=== PATIENT | female | born 1985 | race Caucasian/White ===

== ENCOUNTER 2020-03-21 15:24 | Inpatient (IN) ==
--- NOTE | 2020-03-21 16:26 | RAD ---
HISTORYReason For Study feverSTUDYCHEST, 1 VIEWCOMPARISONNoneFINDINGSThe trachea is midline. The cardiac silhouette is unremarkable . The lungs are clear without focal infiltrate or effusion. The bony thorax is unremarkable.IMPRESSIONNo acute cardiopulmonary disease.Electronically signed by: FERNANDA MELGOZA (Mar 21, 2020 16:24:14)
[2020-03-21] MEDS ORDERED: NS 1000 ML 1,000 ML ONE (16:57)
[2020-03-21 18:11] LABS: BASOPHILS # (AUTO) 0.1 X10^3/uL (0.0-0.1); BASOPHILS % (AUTO) 1.6 % (0.2-1.0); HEMATOCRIT 40.7 % (36.0-47.0); LYMPHOCYTES % (AUTO) 26.3 % (21.0-51.0); MEAN CORPUSCULAR HEMOGLOBIN 31.1 pg (27.0-34.0); MEAN CORPUSCULAR HGB CONC 34.4 g/dL (33.0-35.0); MEAN CORPUSCULAR VOLUME 90.3 fL (80.0-100.0); MEAN PLATELET VOLUME 9.6 fL (7.4-11.0); MONOCYTES # (AUTO) 0.2 x10^3/uL (0.3-0.8); MONOCYTES % (AUTO) 4.8 % (0.0-13.0); NEUTROPHILS # (AUTO) 2.5 x10^3/uL (2.2-4.8); NEUTROPHILS % (AUTO) 67.3 % (42.0-75.0); PLATELET COUNT 211 X10^3/uL (150.0-450.0); RED BLOOD COUNT 4.51 X10^6/uL (3.5-5.4); RED CELL DISTRIBUTION WIDTH 13.4 % (11.6-16.5); WHITE BLOOD COUNT 3.7 X10^3/uL (3.6-10.0)
[2020-03-21 18:25] VITALS: BMI 32.4
[2020-03-21 18:27] LABS: ALANINE AMINOTRANSFERASE 105 Units/L (12-78); ALBUMIN 3.2 g/dL (3.4-5.0); ALKALINE PHOSPHATASE 114 Units/L (46-116); ASPARTATE AMINO TRANSFERASE 69 Units/L (15-37); BLOOD UREA NITROGEN 5 mg/dL (7-18); CALCIUM 8.4 mg/dL (8.5-10.1); CARBON DIOXIDE 23.8 mmol/L (21-32); CHLORIDE 103 mmol/L (98-107); CREATININE 0.89 mg/dL (0.55-1.02); SODIUM 139 mmol/L (136-145); eGFR NON BLACK RACES > 60 (>60)
[2020-03-21] MEDS: NS 1000 ML 1,000 ML IV SCH (18:32)
[2020-03-21 18:56] LABS: ERYTHROCYTE SEDIMENTATION RATE 13 MM/HOUR (0-20)
[2020-03-21] MEDS ORDERED: MICRO K EXTEN CAP 10 MEQ PO PRN (19:04)
[2020-03-21] MEDS ORDERED: KLOR-CON PO PRN (19:04)
[2020-03-21] MEDS ORDERED: POTASSIUM CHLORIDE LIQ 20 MEQ UDC PO PRN (19:04)
[2020-03-21] MEDS ORDERED: K-RIDER 10 MEQ/NS 100 ML 10 MEQ/100 ML BAG IV PRN (19:04)
[2020-03-21] MEDS ORDERED: POTASSIUM CHL 60 MEQ/NS 0.45% 500 ML IV PRN (19:04)
[2020-03-21] MEDS ORDERED: POTASSIUM CHL 40 MEQ/NS 0.45% 500 ML IV PRN (19:04)
[2020-03-21] MEDS: TYLENOL 325 MG TAB PO PRN (19:09)
[2020-03-21 19:17] LABS: BILIRUBIN,URINE NEGATIVE (NEGATIVE); BLOOD/HEMOGLOBIN,URINE 2+ (NEGATIVE); GLUCOSE, URINE NEGATIVE (NEGATIVE); KETONES,URINE NEGATIVE (NEGATIVE); LEUKOCYTE ESTERASE ,URINE NEGATIVE (NEGATIVE); NITRITES,URINE NEGATIVE (NEGATIVE); PH,URINE 6.5 (5.0 - 8.0); PROTEIN,URINE NEGATIVE (NEGATIVE); UROBILINOGEN,URINE NORMAL (NORMAL)
[2020-03-21 19:34] LABS: APPEARANCE,URINE CLEAR (CLEAR); BACTERIA,URINE NEGATIVE /HPF (NEGATIVE); COLOR,URINE YELLOW (YELLOW); RBC,URINE 0-2 /HPF (0-3); SQUAMOUS EPITHELIAL CELL,UR FEW /HPF (NEGATIVE)
[2020-03-21] MEDS: NORCO 5/325 MG TAB PO PRN (21:13)
[2020-03-21] MEDS: K-DUR TAB 20 MEQ PO PRN (21:14)
[2020-03-22] MEDS: NORCO 5/325 MG TAB PO PRN ×3 (03:26→21:49)
[2020-03-22] MEDS: TYLENOL 325 MG TAB PO PRN ×2 (03:42→12:16)
[2020-03-22] MEDS: NS 1000 ML 1,000 ML IV SCH ×3 (05:03→21:48)
--- NOTE | 2020-03-22 05:52 | RAD ---
HISTORYFEVERSTUDYCHEST, 1 [id number]/12/2020FINDINGSThe trachea is midline. The cardiac silhouette is unremarkable. Question hazy opacity at the right lung base.. The bony thorax is unremarkable.IMPRESSIONQuestion hazy opacity at the right lung base, which may represent early infiltrates. Follow-up is recommended.Electronically signed by: Maggy Wynn (Mar 22, 2020 05:50:56)
[2020-03-22 06:15] LABS: BASOPHILS % (AUTO) 0.9 % (0.2-1.0); EOSINOPHILS % (AUTO) 0.1 % (0.9-2.9); HEMOGLOBIN 13.4 g/dL (12.0-16.0); LYMPHOCYTES # (AUTO) 0.4 X10^3/uL (1.3-2.9); LYMPHOCYTES % (AUTO) 14.8 % (21.0-51.0); MEAN CORPUSCULAR HEMOGLOBIN 31.4 pg (27.0-34.0); MEAN CORPUSCULAR HGB CONC 34.3 g/dL (33.0-35.0); MEAN CORPUSCULAR VOLUME 91.4 fL (80.0-100.0); MONOCYTES # (AUTO) 0.1 x10^3/uL (0.3-0.8); MONOCYTES % (AUTO) 4.3 % (0.0-13.0); NEUTROPHILS # (AUTO) 2.1 x10^3/uL (2.2-4.8); NEUTROPHILS % (AUTO) 79.9 % (42.0-75.0); PLATELET COUNT 179 X10^3/uL (150.0-450.0); RED BLOOD COUNT 4.27 X10^6/uL (3.5-5.4); RED CELL DISTRIBUTION WIDTH 13.5 % (11.6-16.5); WHITE BLOOD COUNT 2.7 X10^3/uL (3.6-10.0)
[2020-03-22 06:30] LABS: ALANINE AMINOTRANSFERASE 111 Units/L (12-78); ALBUMIN 2.7 g/dL (3.4-5.0); ALKALINE PHOSPHATASE 120 Units/L (46-116); ASPARTATE AMINO TRANSFERASE 90 Units/L (15-37); BLOOD UREA NITROGEN 5 mg/dL (7-18); CALCIUM 7.9 mg/dL (8.5-10.1); CARBON DIOXIDE 23.9 mmol/L (21-32); CHLORIDE 104 mmol/L (98-107); COR CA(FOR HYPOALB) 8.9 mg/dL (8.5-10.1); CREATININE 0.89 mg/dL (0.55-1.02); SODIUM 138 mmol/L (136-145); TOTAL PROTEIN 6.2 g/dL (6.4-8.2); eGFR NON BLACK RACES > 60 (>60)
[2020-03-22] MEDS: K-DUR TAB 20 MEQ PO PRN (10:24)
[2020-03-22] MEDS ORDERED: NS 250 ML IV 250 ML IV ONE (10:50)
[2020-03-22] MEDS: ZITHROMAX INJ 500 MG VIAL 500 MG in D5W 250 ML IV 250 ML IV SCH (11:00)
[2020-03-22] MEDS: ZOSYN VIAL 3.375 GRAMS 3.375 G in NS 100 ML IV + SPIKE MINIBAG* 100 ML IV SCH ×4 (11:22→21:23)
[2020-03-22 11:58] LABS: RSV AG DETECTION NEGATIVE (NEGATIVE)
[2020-03-22] MEDS ORDERED: PROVENTIL NEB TX 0.083% 2.5MG/ 3ML NEB PRN (12:50)
--- NOTE | 2020-03-22 13:26 | DR.H&P ---
H&P - History & Physical for Day of: H&P Date: 03/22/20 - Chief Complaint Chief Complaint: DAY, FEVER, BODYACHES - History of Present Illness History of Present Illness: PT IS 34 WF DIRECT ADMIT FROM DR NIKI PORTILLO OFFICE WITH FEVER, BODY ACHES AND INTRACTABLE DAY. PT DENIES ANY CHEST PAIN OR SOB. PT DENIES ANY KNOWN COVID EXPOSURE. PT HAD TEMP 103 IN OFFICE, GIVEN TORADOL 60MG IM FOR DAY AND FEVER CONTROL. PT CO NO APPETITE AND DEHYDRATION. PT HAS PMH OF SEVERO AND ANEMIA. PT ADMITTED FOR TREATMENT OF ACUTE ILLNESS R/O COVID 19. - Past Medical History Past Medical History: Anemia, Anxiety, Depression - Past Surgical History Surgical History: Tonsillectomy - Family History Family Medical History: Cancer, Coronary Artery Disease, Hypertension - Social History Does patient currently use any type of tobacco product: Yes Have you used tobacco products in the last 12 months: Yes Type of Tobacco Use: Cigarettes Does any household member use tobacco: No Alcohol Use: None Drug Use: None Prescription drug monitoring program results: PDMP reviewed and no concerns identified - Medications Home Medications: Sulfa (Sulfonamide Antibiotics) Allergy (Verified 03/21/20 17:40) sulfamethoxazole [From Bactrim] Allergy (Verified 03/21/20 17:46) trimethoprim [From Bactrim] Allergy (Verified 03/21/20 17:46) - Review of Systems Constitutional: Fever, Chills, Sweats, Malaise Eyes: Vision Change ("MY HEAD HURTS SO BAD I CANT OPEN MY EYES") ENT: No Symptoms Reported Respiratory: No Symptoms Reported Cardiovascular: Palpitations Gastrointestinal: Nausea Genitourinary: No Symptoms Reported Musculoskeletal: No Symptoms Reported Skin: No Symptoms Reported Neurological: Other (HEADACHE) - Physical Exam Vital Signs: Temperature 99.5 F Pulse Rate 90 Respiratory Rate 22 Blood Pressure 124/81 O2 Sat by Pulse Oximetry 99 Oriented: Normal Eyes: Normal Ear: Normal Nose: Normal Throat: Normal Respiratory: RLL Diminished, LLL Diminished Cardiovascular: Normal : Normal Auscultation: Bowel Sounds: Normal Palpation: Normal Tenderness: Normal Skin: Decreased Turgur Musculoskeletal: Normal Psychiatric: Anxiety Affect: Anxious Speech Pattern: Clear, Appropriate - Assessment/Plan (1) Fever Status: Acute Plan: ADMIT, BLOOD URINE AND SPUTUM CULTURE ON ADMISSION. FEVER CONTROL, COVID 19 FLU AND STREP SCREEN ON ADMISSION. CXR ON ADMISSION, IV HYDRATION. PAIN CONTROL, IV ZOSYN, ZITHROMAX AFTER CULTURES. CONFIRM HOME MEDICATION (2) Nonspecific syndrome suggestive of viral illness Status: Acute (3) Dehydration Status: Acute (4) Intractable headache Status: Acute - Allergies Allergies/Adverse Reactions: Allergies Allergy/AdvReac Type Severity Reaction Status Date / Time Sulfa (Sulfonamide Allergy Verified 03/21/20 17:40 Antibiotics) sulfamethoxazole Allergy Verified 03/21/20 17:46 [From Bactrim] trimethoprim [From Bactrim] Allergy Verified 03/21/20 17:46
[2020-03-22] MEDS: LOVENOX INJ 30 MG SYR SC SCH ×2 (14:08→21:48)
[2020-03-22] MEDS: FIORICET TAB PO PRN ×2 (14:25→21:23)
--- NOTE | 2020-03-22 15:35 | CT ---
HISTORYINTRACTABLE DAY, VISION CHANGESTUDYBRAIN W/O CONCOMPARISONNoneTECHNIQUEMultiple CT axial images of the head were obtained without IV contrast. Coronal and sagittal images were reconstructed. Dose reduction techniques included Automated Exposure Control (AEC) and adjustment of mA and kV.FINDINGSGray and white matter have normal differentiation. There is no mass, shift, or hemorrhage. Cerebellar tonsils are at an appropriate level. No fluid in the sinuses or mucosal thickening to suggest sinusitis. There is no mastoid effusion.IMPRESSION1. No acute findingElectronically signed by: David Tabor (Mar 22, 2020 15:32:59)
--- NOTE | 2020-03-22 15:37 | CT ---
HISTORYFEVER, DAY intractable headache. Vision changes.STUDYCTA CHESTCOMPARISONNoneTECHNIQUEMultiple CT axial images of the chest were obtained with IV contrast. Coronal and sagittal images were reconstructed. 3D reconstructions using axial MIPS imaging was performed and reviewed. Dose reduction techniques included Automated Exposure Control (AEC) and adjustment of mA and kV.Stenoses are measured using NASCET criteria.FINDINGSPulmonary arteries are identified to subsegmental branches. There are no pulmonary emboli.The heart is normal in size. The pulmonary artery and aorta have a normal caliber. No mediastinal mass or significant lymphadenopathy.The thyroid has a normal size and configuration. No axillary mass or significant axillary lymphadenopathy is identified.The lungs are well inflated with no pneumonia or pleural effusion.Limited views of the upper abdomen show no significant abnormality. No significant bone abnormality.IMPRESSION1. No pulmonary emboli2. No significant abnormalityElectronically signed by: David Tabor (Mar 22, 2020 15:35:41)
[2020-03-22] MEDS: TORADOL 30 MG VIAL IVP PRN (17:23)
[2020-03-22] MEDS ORDERED: MAGNESIUM SULFATE 1 GRAM/100 mL PREMIX 1 G/100 ML BAG IV ONE (17:45)
[2020-03-22] MEDS: MAGNESIUM SULFATE 1 GRAM/100 mL PREMIX 1 GM/100 ML BAG IV PRN (17:52)
[2020-03-22] MEDS: AMBIEN PO PRN (22:30)
[2020-03-23] MEDS: ZOSYN VIAL 3.375 GRAMS 3.375 G in NS 100 ML IV + SPIKE MINIBAG* 100 ML IV SCH ×3 (05:27→21:50)
[2020-03-23 05:28] LABS: BASOPHILS % (AUTO) 1.1 % (0.2-1.0); HEMATOCRIT 41.7 % (36.0-47.0); HEMOGLOBIN 14.1 g/dL (12.0-16.0); LYMPHOCYTES # (AUTO) 0.6 X10^3/uL (1.3-2.9); LYMPHOCYTES % (AUTO) 26.2 % (21.0-51.0); MEAN CORPUSCULAR HEMOGLOBIN 30.9 pg (27.0-34.0); MEAN CORPUSCULAR HGB CONC 33.9 g/dL (33.0-35.0); MEAN CORPUSCULAR VOLUME 91.2 fL (80.0-100.0); MEAN PLATELET VOLUME 10.3 fL (7.4-11.0); MONOCYTES # (AUTO) 0.2 x10^3/uL (0.3-0.8); MONOCYTES % (AUTO) 6.8 % (0.0-13.0); NEUTROPHILS # (AUTO) 1.5 x10^3/uL (2.2-4.8); NEUTROPHILS % (AUTO) 65.9 % (42.0-75.0); PLATELET COUNT 148 X10^3/uL (150.0-450.0); RED BLOOD COUNT 4.57 X10^6/uL (3.5-5.4); RED CELL DISTRIBUTION WIDTH 13.5 % (11.6-16.5); WHITE BLOOD COUNT 2.3 X10^3/uL (3.6-10.0)
[2020-03-23 05:41] LABS: ALANINE AMINOTRANSFERASE 140 Units/L (12-78); ALBUMIN 2.7 g/dL (3.4-5.0); ALKALINE PHOSPHATASE 184 Units/L (46-116); ASPARTATE AMINO TRANSFERASE 125 Units/L (15-37); BLOOD UREA NITROGEN 4 mg/dL (7-18); CALCIUM 7.9 mg/dL (8.5-10.1); CHLORIDE 105 mmol/L (98-107); COR CA(FOR HYPOALB) 8.9 mg/dL (8.5-10.1); CREATININE 0.82 mg/dL (0.55-1.02); MAGNESIUM 1.9 mg/dL (1.7-2.9); SODIUM 138 mmol/L (136-145); TOTAL PROTEIN 6.1 g/dL (6.4-8.2); eGFR NON BLACK RACES > 60 (>60)
[2020-03-23 05:57] LABS: PLATELET MORPHOLOGY COMMENT NORMAL (NORMAL)
[2020-03-23] MEDS: LOVENOX INJ 30 MG SYR SC SCH ×3 (09:23→21:48)
[2020-03-23] MEDS: FIORICET TAB PO PRN ×2 (09:24→16:32)
[2020-03-23] MEDS: ZITHROMAX INJ 500 MG VIAL 500 MG in D5W 250 ML IV 250 ML IV SCH (09:25)
[2020-03-23] MEDS: TYLENOL 325 MG TAB PO PRN ×2 (09:28→17:20)
[2020-03-23] MEDS: MAGNESIUM SULFATE 1 GRAM/100 mL PREMIX 1 GM/100 ML BAG IV PRN ×2 (12:31→16:30)
[2020-03-23] MEDS: NS 1000 ML 1,000 ML IV SCH ×2 (17:05→18:25)
[2020-03-23] MEDS ORDERED: AYR NASAL DROPS PRN (21:04)
[2020-03-23] MEDS ORDERED: AYR NASAL DROPS ONE (21:18)
[2020-03-23] MEDS: AMBIEN PO PRN (21:50)
[2020-03-23] MEDS: TORADOL 30 MG VIAL IVP PRN (21:50)
[2020-03-23] MEDS: NORCO 5/325 MG TAB PO PRN (23:38)
[2020-03-24] MEDS: NS 1000 ML 1,000 ML IV SCH ×4 (03:38→23:02)
[2020-03-24] MEDS: FIORICET TAB PO PRN ×3 (04:00→20:49)
[2020-03-24 04:56] LABS: BASOPHILS % (AUTO) 1.3 % (0.2-1.0); EOSINOPHILS % (AUTO) 1.1 % (0.9-2.9); HEMATOCRIT 39.2 % (36.0-47.0); HEMOGLOBIN 13.4 g/dL (12.0-16.0); LYMPHOCYTES # (AUTO) 1.6 X10^3/uL (1.3-2.9); LYMPHOCYTES % (AUTO) 50.4 % (21.0-51.0); MEAN CORPUSCULAR HEMOGLOBIN 31.1 pg (27.0-34.0); MEAN CORPUSCULAR HGB CONC 34.2 g/dL (33.0-35.0); MEAN CORPUSCULAR VOLUME 90.8 fL (80.0-100.0); MEAN PLATELET VOLUME 10.5 fL (7.4-11.0); MONOCYTES # (AUTO) 0.3 x10^3/uL (0.3-0.8); MONOCYTES % (AUTO) 8.7 % (0.0-13.0); NEUTROPHILS # (AUTO) 1.2 x10^3/uL (2.2-4.8); NEUTROPHILS % (AUTO) 38.5 % (42.0-75.0); PLATELET COUNT 154 X10^3/uL (150.0-450.0); RED BLOOD COUNT 4.31 X10^6/uL (3.5-5.4); RED CELL DISTRIBUTION WIDTH 14.2 % (11.6-16.5); WHITE BLOOD COUNT 3.1 X10^3/uL (3.6-10.0)
[2020-03-24 05:05] LABS: ALANINE AMINOTRANSFERASE 190 Units/L (12-78); ALBUMIN 2.4 g/dL (3.4-5.0); ALKALINE PHOSPHATASE 207 Units/L (46-116); ASPARTATE AMINO TRANSFERASE 181 Units/L (15-37); BLOOD UREA NITROGEN 3 mg/dL (7-18); CALCIUM 7.7 mg/dL (8.5-10.1); CARBON DIOXIDE 23.7 mmol/L (21-32); CHLORIDE 108 mmol/L (98-107); CREATININE 0.78 mg/dL (0.55-1.02); SODIUM 140 mmol/L (136-145); TOTAL PROTEIN 5.7 g/dL (6.4-8.2); eGFR NON BLACK RACES > 60 (>60)
[2020-03-24] MEDS: ZOSYN VIAL 3.375 GRAMS 3.375 G in NS 100 ML IV + SPIKE MINIBAG* 100 ML IV SCH ×3 (05:55→23:00)
--- NOTE | 2020-03-24 06:12 | RAD ---
HISTORYFEVERSTUDYCHEST, 1 [id number]/13/2020FINDINGSCardiac silhouette is unremarkable. The lungs are mildly hypoinflated but grossly clear without focal infiltrate or pleural effusion. No pneumothorax.IMPRESSIONNo acute cardiopulmonary disease.Electronically signed by: LUIS EDUARDO GARCAI (Mar 24, 2020 06:09:40)
[2020-03-24] MEDS: NORCO 5/325 MG TAB PO PRN ×2 (08:39→17:42)
[2020-03-24] MEDS ORDERED: LOVENOX INJ 30 MG SYR SC ONE (09:08)
[2020-03-24] MEDS: LOVENOX INJ 30 MG SYR SC SCH ×2 (09:40→20:49)
[2020-03-24] MEDS: K-DUR TAB 20 MEQ PO PRN (09:42)
[2020-03-24] MEDS: ZITHROMAX INJ 500 MG VIAL 500 MG in D5W 250 ML IV 250 ML IV SCH (09:42)
[2020-03-24] MEDS ORDERED: SOLU-Medrol 125 MG VIAL IVP SCH (11:00)
[2020-03-24 12:07] LABS: BILIRUBIN,URINE NEGATIVE (NEGATIVE); BLOOD/HEMOGLOBIN,URINE NEGATIVE (NEGATIVE); GLUCOSE, URINE NEGATIVE (NEGATIVE); KETONES,URINE NEGATIVE (NEGATIVE); LEUKOCYTE ESTERASE ,URINE NEGATIVE (NEGATIVE); NITRITES,URINE NEGATIVE (NEGATIVE); PROTEIN,URINE NEGATIVE (NEGATIVE); UROBILINOGEN,URINE 1+ (NORMAL)
[2020-03-24 12:23] LABS: APPEARANCE,URINE CLEAR (CLEAR); COLOR,URINE YELLOW (YELLOW)
[2020-03-24 12:25] LABS: BACTERIA,URINE NEGATIVE /HPF (NEGATIVE); RBC,URINE NONE SEEN /HPF (0-3); SQUAMOUS EPITHELIAL CELL,UR FEW /HPF (NEGATIVE)
[2020-03-24] MEDS: TYLENOL 325 MG TAB PO PRN ×2 (12:48→20:15)
[2020-03-24] MEDS: AMBIEN PO PRN (20:49)
[2020-03-24] MEDS: TORADOL 30 MG VIAL IVP PRN (20:50)
--- NOTE | 2020-03-24 22:15 | CT ---
HISTORYfever, elevated lfts, abdomen painSTUDYABDOMEN/PELVIS WITH CONCOMPARISONNoneTECHNIQUEMultiple axial images of the abdomen and pelvis were obtained from the lung bases to the pubic symphysis after the administration of IV contrast. Dose reduction techniques including Automated Exposure Control (AEC) and adjustment of mA and kV were utilized.FINDINGSThe visualized portions of the lung bases are unremarkable . The liver, spleen, pancreas, kidneys, and adrenal glands are unremarkable in their CT appearance. The gallbladder is unremarkable in its CT appearance . No significant mesenteric lymphadenopathy or stranding can be observed. No free fluid or free air is seen within the abdomen. Normal appendix right lower quadrant. No bowel wall thickening or bowel dilatation is present. The colon is unremarkable. Specifically, there is no diverticulosis noted within the sigmoid colon. The urinary bladder is grossly unremarkable. The uterus is present. The bony structures are grossly intact.IMPRESSIONUnremarkable CT of the abdomen and pelvis.Electronically signed by: Cong Urias (Mar 24, 2020 22:13:37)
[2020-03-25] MEDS: NORCO 5/325 MG TAB PO PRN ×3 (03:07→22:43)
[2020-03-25 05:22] LABS: BASOPHILS % (AUTO) 0.8 % (0.2-1.0); EOSINOPHILS # (AUTO) 0.1 x10^3/uL (0.0-0.2); EOSINOPHILS % (AUTO) 2.3 % (0.9-2.9); HEMATOCRIT 37.9 % (36.0-47.0); LYMPHOCYTES # (AUTO) 1.8 X10^3/uL (1.3-2.9); LYMPHOCYTES % (AUTO) 41.8 % (21.0-51.0); MEAN CORPUSCULAR HEMOGLOBIN 31.1 pg (27.0-34.0); MEAN CORPUSCULAR HGB CONC 34.3 g/dL (33.0-35.0); MEAN CORPUSCULAR VOLUME 90.8 fL (80.0-100.0); MEAN PLATELET VOLUME 10.6 fL (7.4-11.0); MONOCYTES # (AUTO) 0.3 x10^3/uL (0.3-0.8); MONOCYTES % (AUTO) 8.1 % (0.0-13.0); PLATELET COUNT 188 X10^3/uL (150.0-450.0); RED BLOOD COUNT 4.17 X10^6/uL (3.5-5.4); WHITE BLOOD COUNT 4.3 X10^3/uL (3.6-10.0)
[2020-03-25 05:31] LABS: ALANINE AMINOTRANSFERASE 260 Units/L (12-78); ALBUMIN 2.3 g/dL (3.4-5.0); ALKALINE PHOSPHATASE 262 Units/L (46-116); ASPARTATE AMINO TRANSFERASE 244 Units/L (15-37); BLOOD UREA NITROGEN 5 mg/dL (7-18); CALCIUM 7.9 mg/dL (8.5-10.1); CARBON DIOXIDE 25.6 mmol/L (21-32); CHLORIDE 108 mmol/L (98-107); COR CA(FOR HYPOALB) 9.3 mg/dL (8.5-10.1); CREATININE 0.73 mg/dL (0.55-1.02); SODIUM 140 mmol/L (136-145); TOTAL PROTEIN 5.6 g/dL (6.4-8.2); eGFR NON BLACK RACES > 60 (>60)
[2020-03-25] MEDS: NS 1000 ML 1,000 ML IV SCH ×2 (06:31→21:55)
[2020-03-25] MEDS: ZOSYN VIAL 3.375 GRAMS 3.375 G in NS 100 ML IV + SPIKE MINIBAG* 100 ML IV SCH ×3 (06:31→21:56)
[2020-03-25] MEDS: LOVENOX INJ 30 MG SYR SC SCH ×2 (08:26→21:56)
[2020-03-25] MEDS: FIORICET TAB PO PRN ×2 (08:27→18:33)
[2020-03-25] MEDS: K-DUR TAB 20 MEQ PO PRN (08:28)
[2020-03-25] MEDS: SOLU-Medrol 125 MG VIAL IVP SCH ×3 (10:09→21:56)
[2020-03-25] MEDS: ZITHROMAX INJ 500 MG VIAL 500 MG in D5W 250 ML IV 250 ML IV SCH (10:09)
[2020-03-25] MEDS: AMBIEN PO PRN (21:56)
[2020-03-25] MEDS: TYLENOL 325 MG TAB PO PRN (21:57)
[2020-03-26] MEDS: SOLU-Medrol 125 MG VIAL IVP SCH ×3 (05:22→21:48)
[2020-03-26] MEDS: ZOSYN VIAL 3.375 GRAMS 3.375 G in NS 100 ML IV + SPIKE MINIBAG* 100 ML IV SCH ×3 (05:22→21:48)
[2020-03-26] MEDS: FIORICET TAB PO PRN ×3 (05:22→20:47)
[2020-03-26 06:09] LABS: BASOPHILS % (AUTO) 0.3 % (0.2-1.0); HEMATOCRIT 37.2 % (36.0-47.0); HEMOGLOBIN 12.8 g/dL (12.0-16.0); LYMPHOCYTES # (AUTO) 2.8 X10^3/uL (1.3-2.9); MEAN CORPUSCULAR HEMOGLOBIN 30.9 pg (27.0-34.0); MEAN CORPUSCULAR HGB CONC 34.4 g/dL (33.0-35.0); MEAN PLATELET VOLUME 10.4 fL (7.4-11.0); MONOCYTES # (AUTO) 0.7 x10^3/uL (0.3-0.8); MONOCYTES % (AUTO) 7.9 % (0.0-13.0); NEUTROPHILS # (AUTO) 5.1 x10^3/uL (2.2-4.8); NEUTROPHILS % (AUTO) 58.8 % (42.0-75.0); PLATELET COUNT 227 X10^3/uL (150.0-450.0); RED BLOOD COUNT 4.13 X10^6/uL (3.5-5.4); WHITE BLOOD COUNT 8.6 X10^3/uL (3.6-10.0)
--- NOTE | 2020-03-26 06:23 | RAD ---
HISTORYPNEUMONIASTUDYCHEST, 1 [id number]/15/2020FINDINGSThe trachea is midline. The cardiac silhouette is unremarkable . The lungs are clear without focal infiltrate or effusion. Pulmonary vasculature within normal limits. No pneumothorax. The bony thorax is unremarkable.IMPRESSIONNo acute cardiopulmonary disease.Electronically signed by: Cong Urisa (Mar 26, 2020 06:22:47)
[2020-03-26 06:27] LABS: ALANINE AMINOTRANSFERASE 257 Units/L (12-78); ALBUMIN 2.4 g/dL (3.4-5.0); ALKALINE PHOSPHATASE 282 Units/L (46-116); ASPARTATE AMINO TRANSFERASE 157 Units/L (15-37); BLOOD UREA NITROGEN 5 mg/dL (7-18); CALCIUM 8.3 mg/dL (8.5-10.1); CARBON DIOXIDE 28.8 mmol/L (21-32); CHLORIDE 107 mmol/L (98-107); COR CA(FOR HYPOALB) 9.6 mg/dL (8.5-10.1); COR NA(FOR HYPERGLY) 142 mmol/L (136-145); CREATININE 0.69 mg/dL (0.55-1.02); SODIUM 141 mmol/L (136-145); TOTAL PROTEIN 5.9 g/dL (6.4-8.2); eGFR NON BLACK RACES > 60 (>60)
[2020-03-26] MEDS: NORCO 5/325 MG TAB PO PRN ×2 (07:58→18:13)
[2020-03-26] MEDS: NS 1000 ML 1,000 ML IV SCH ×2 (09:29→23:33)
[2020-03-26] MEDS: ZITHROMAX INJ 500 MG VIAL 500 MG in D5W 250 ML IV 250 ML IV SCH (09:30)
[2020-03-26] MEDS: LOVENOX INJ 30 MG SYR SC SCH ×2 (09:42→20:46)
[2020-03-26] MEDS: ZOFRAN INJ 4 MG VIAL IVP PRN (11:49)
[2020-03-26] MEDS: AMBIEN PO PRN (20:48)
[2020-03-27] MEDS: ZOSYN VIAL 3.375 GRAMS 3.375 G in NS 100 ML IV + SPIKE MINIBAG* 100 ML IV SCH ×2 (05:26→13:57)
[2020-03-27] MEDS: SOLU-Medrol 125 MG VIAL IVP SCH ×2 (05:26→13:57)
[2020-03-27 05:40] LABS: BASOPHILS % (AUTO) 0.2 % (0.2-1.0); HEMATOCRIT 37.7 % (36.0-47.0); HEMOGLOBIN 12.6 g/dL (12.0-16.0); LYMPHOCYTES # (AUTO) 3.3 X10^3/uL (1.3-2.9); LYMPHOCYTES % (AUTO) 22.4 % (21.0-51.0); MEAN CORPUSCULAR HEMOGLOBIN 30.5 pg (27.0-34.0); MEAN CORPUSCULAR HGB CONC 33.5 g/dL (33.0-35.0); MEAN CORPUSCULAR VOLUME 91.2 fL (80.0-100.0); MEAN PLATELET VOLUME 11.3 fL (7.4-11.0); MONOCYTES # (AUTO) 0.7 x10^3/uL (0.3-0.8); MONOCYTES % (AUTO) 5.1 % (0.0-13.0); NEUTROPHILS # (AUTO) 10.6 x10^3/uL (2.2-4.8); NEUTROPHILS % (AUTO) 72.3 % (42.0-75.0); PLATELET COUNT 335 X10^3/uL (150.0-450.0); RED BLOOD COUNT 4.13 X10^6/uL (3.5-5.4); WHITE BLOOD COUNT 14.7 X10^3/uL (3.6-10.0)
[2020-03-27 05:58] LABS: ALANINE AMINOTRANSFERASE 207 Units/L (12-78); ALBUMIN 2.4 g/dL (3.4-5.0); ALKALINE PHOSPHATASE 262 Units/L (46-116); ASPARTATE AMINO TRANSFERASE 92 Units/L (15-37); BLOOD UREA NITROGEN 6 mg/dL (7-18); CARBON DIOXIDE 26.7 mmol/L (21-32); CHLORIDE 107 mmol/L (98-107); COR CA(FOR HYPOALB) 9.3 mg/dL (8.5-10.1); COR NA(FOR HYPERGLY) 142 mmol/L (136-145); CREATININE 0.82 mg/dL (0.55-1.02); SODIUM 141 mmol/L (136-145); TOTAL PROTEIN 5.9 g/dL (6.4-8.2); eGFR NON BLACK RACES > 60 (>60)
[2020-03-27 06:45] LABS: CMV IGG QUANT >10.00 U/mL; CMV IGM ANTIBODY <8.0 AU/mL (<=29.9); EPSTEIN-BARR VCA IGG >750.0 U/mL (0.0-21.9); EPSTEIN-BARR VCA IGM <10.0 U/mL (0.0-43.9)
[2020-03-27] MEDS: ZOFRAN INJ 4 MG VIAL IVP PRN (07:36)
[2020-03-27] MEDS: FIORICET TAB PO PRN (07:37)
[2020-03-27] MEDS: LOVENOX INJ 30 MG SYR SC SCH (08:07)
[2020-03-27] MEDS: ZITHROMAX INJ 500 MG VIAL 500 MG in D5W 250 ML IV 250 ML IV SCH (08:14)
[2020-03-27 12:02] VITALS: BP 116/68
[2020-03-27] MEDS: NORCO 5/325 MG TAB PO PRN (12:29)
[2020-03-27] MEDS: NS 1000 ML 1,000 ML IV SCH (13:45)
== END 2020-03-27 14:50 | disposition home or self-care (01) | DRG 391 ==
LOC: ICU → MED/SURG 03-25 15:40
PROVIDERS: ADMIT Internal Medicine; ATTEND Internal Medicine
DX: F41.8 Other specified anxiety disorders; E86.0 Dehydration; Z20.828 Contact with and (suspected) exposure to other viral communicable diseases; R51.9 Headache, unspecified; R79.1 Abnormal coagulation profile; R94.5 Abnormal results of liver function studies; R79.82 Elevated C-reactive protein (CRP); J18.9 Pneumonia, unspecified organism; R50.9 Fever, unspecified; B97.89 Other viral agents as the cause of diseases classified elsewhere; A08.39 Other viral enteritis; E87.6 Hypokalemia